=== PATIENT | female | born 1960 | race Caucasian/White ===

== ENCOUNTER 2019-11-24 20:08 | Emergency (ER) | payer MEDICARE ==
[~2019-11-24] VITALS: Ht 170.2 cm; Wt 104.3 kg
[2019-11-24] MEDS ORDERED: DIAZEPAM 5 MG5 M1 PO (20:27)
[2019-11-24 21:15] LABS: ABSOLUTE BASOPHILS 0.1 thou/uL (0.0-0.2); ABSOLUTE EOSINOPHILS 0.2 thou/uL (0.0-0.7); ABSOLUTE LYMPHOCYTES 2.3 thou/uL (0.8-5.3); ABSOLUTE MONOCYTES 0.6 thou/uL (0.0-1.2); ABSOLUTE NEUTROPHILS 3.8 thou/uL (1.6-8.1); BASOPHILS 0.8 %; EOSINOPHILS 2.5 %; HEMATOCRIT 41.2 % (37.0-47.0); HEMOGLOBIN 14.1 gm/dL (12.0-15.0); LYMPHOCYTES 33.2 %; MCHC 34.2 g/dL (28.0-37.0); MCV 93.6 fL (80.0-100.0); MONOCYTES 8.9 %; MPV 8.5 fl. (7.2-11.1); NUCLEATED RBCS 0 /100WBC; PLATELET COUNT* 258 thou/uL (150-400); POLYS 54.6 %; RDW-CV 13.3 % (10.5-14.5)
[2019-11-24 21:22] LABS: CALCIUM 8.8 mg/dL (8.5-10.1); CREATININE 1.3 mg/dL (0.6-1.3); POTASSIUM 4.4 mmol/L (3.5-5.1)
[2019-11-24 21:26] LABS: ALBUMIN 4.1 g/dL (3.4-5.0); TOTAL BILIRUBIN 0.3 mg/dL (<0.1-1.0); TOTAL PROTEIN 7.5 g/dL (6.4-8.2)
[2019-11-24 22:00] LABS: URINE BILIRUBIN NEGATIVE (Negative); URINE BLOOD TRACE (Negative); URINE CLARITY CLEAR; URINE COLOR YELLOW; URINE GLUCOSE-RANDOM NEGATIVE (Negative); URINE KETONES NEGATIVE (Negative); URINE NITRITE-REFLEX NEGATIVE (Negative); URINE PROTEIN NEGATIVE (Negative); URINE SPECIFIC GRAVITY 1.025 (1.005-1.030); URINE UROBILINOGEN 0.2 E.U./dl (0.2-1.0)
[2019-11-24 22:01] LABS: URINE LEUKOCYTES-REFLEX 2+ (Negative)
[2019-11-24 22:05] LABS: HYALINE CASTS 0-3 Few /LPF (None Seen); SQUAMOUS >10 Many /LPF (0-3)
[2019-11-24 22:06] LABS: BACTERIA-REFLEX 1-9 Few /HPF (None Seen); CRYSTALS None Seen /LPF (None Seen); MUCUS None Seen strn/LPF (None Seen); URINE RBC 0-2 Rare /HPF (0-2); URINE WBC-REFLEX 6-15 Few /HPF (0-5)
[2019-11-24 22:50] VITALS: BP 154/79
--- NOTE | 2019-11-25 15:06 | EKG ---
[place] [address] ELECTROCARDIOGRAM REPORT Name: BORISJOANNA Serrano Room: [facility]#: [id number] Admission: 11/24/19 Attend Phys: Discharge: 11/24/19 Date of : 60 Date of Service: 11/24/192151 Report #: [id number] THIS REPORT FOR: //name// [facility] ED Test Date: 2019-11-24 Test Time: 21:52:34 Pat Name: JOANNA ESCALANTE Department: Room: Gender: Manager Nursing: : 1960 Requested By: Brenna Winter Order Number: [id number] MD: Antoni Richardson Measurements Intervals [place] Rate: 66 P: 71 [place]: 181 QRS: -5 QRSD: 100 T: 64 QT: 444 QTc: 466 Interpretive Statements Sinus rhythm Low voltage, extremity leads Compared to ECG 12/28/2008 07:50:28 Low QRS voltage now present Nonspecific ST-T changes are noted Electronically Signed On 11-25-2019 15:06:36 CDT by Antoni Richardson [email or web address] <ELECTRONICALLY SIGNED> By: Antoni Richardson MD, [facility] 11/25/19 1506 215 51 Antoni Richardson MD, [facility] /EPI
== END 2019-11-24 22:52 | disposition home or self-care (01) ==
LOC: M.ERS 20:08
PROVIDERS: Personal Emergency Response Attendant
DX: R42 Dizziness and giddiness (principal); Z88.1 Allergy status to other antibiotic agents; Z98.890 Other specified postprocedural states; Z96.641 Presence of right artificial hip joint